=== PATIENT | female | born 1955 | race Hispanic/Latino ===

== ENCOUNTER 2018-11-06 07:31 | Emergency (ER) | payer BC, OTHER ==
[~2018-11-06 07:31] MED LIST: SIME80TA12 PO
[2018-11-06 08:56] LABS: BASOPHILS % (AUTO) 1.1 % (0.0-5.0); HEMATOCRIT 44.5 % (36-48); LYMPHOCYTES % (AUTO) 29.1 % (21.0-51.0); MEAN CORPUSCULAR HEMOGLOBIN 30.6 pg (27.0-33.0); MEAN CORPUSCULAR HGB CONC 33.9 g/dL (32.0-36.0); MEAN CORPUSCULAR VOLUME 90.4 fL (79-99); MONOCYTES % (AUTO) 8.8 % (3.0-13.0); NUCLEATED RED BLOOD CELLS 0.1 % (0.0-0.19); PLATELET COUNT (AUTO) 194 K/uL (130-400); RED BLOOD CELL COUNT(AUTO) 4.92 MIL/uL (4.00-5.50); RED CELL DISTRIBUTION WIDTH 13.8 % (11.0-15.5)
[2018-11-06] MEDS ORDERED: METHYLPREDNISOLONE SOD SUCC 125MG/2ML VIAL ONE (09:05)
[2018-11-06] MEDS ORDERED: LEVOFLOXACIN 500 MG/D5W 100 ML 100 ML ONE (09:06)
[2018-11-06 09:07] LABS: CREATININE 0.7 mg/dL (0.5-1.5); POTASSIUM 4.3 mmol/L (3.5-5.1)
[2018-11-06] MEDS ORDERED: SODIUM CHLORIDE 0.9% 1000ML 1,000 ML IV ONE (09:07)
[2018-11-06] MEDS ORDERED: IPRATROPIUM/ALBUTEROL SULFATE 3 ML SOLUTION IH ONE (09:23)
[2018-11-06 09:24] LABS: B-TYPE NATRIURETIC PEPTIDE 18 pg/mL (0-100)
== END 2018-11-06 11:06 | disposition home or self-care (01) ==
LOC: EDH 07:31
DX: J20.9 Acute bronchitis, unspecified (principal)
CPT/HCPCS: 36415; 71045; 80048; 83880; 84484; 85025; 87804 ×2; 93005; 94640; 96365; 96375; 99285; J1956; J2930; J7030

== ENCOUNTER 2018-12-29 20:59 | Emergency (ER) | payer OTHER ==
[2018-12-29] MEDS ORDERED: LORAZEPAM 1 MG TABLET ONE (21:13)
[2018-12-29 21:28] LABS: EOSINOPHILS % (AUTO) 1.6 % (0.0-8.0); HEMATOCRIT 44.3 % (36-48); LYMPHOCYTES % (AUTO) 38.7 % (21.0-51.0); MEAN CORPUSCULAR HEMOGLOBIN 31.4 pg (27.0-33.0); MEAN CORPUSCULAR HGB CONC 34.6 g/dL (32.0-36.0); MEAN CORPUSCULAR VOLUME 90.7 fL (79-99); MONOCYTES % (AUTO) 9.1 % (3.0-13.0); NEUTROPHILS % (AUTO) 49.6 % (40.0-77.0); PLATELET COUNT (AUTO) 206 K/uL (130-400); RED BLOOD CELL COUNT(AUTO) 4.89 MIL/uL (4.00-5.50); WHITE BLOOD COUNT (AUTO) 7.8 K/uL (4.8-10.8)
[2018-12-29 21:40] LABS: CREATININE 0.8 mg/dL (0.5-1.5); POTASSIUM 3.5 mmol/L (3.5-5.1)
[2018-12-29 21:43] LABS: INR 0.95 (0.85-1.15)
[2018-12-29 21:44] LABS: ALBUMIN 3.6 g/dL (3.5-5.0); BILIRUBIN,TOTAL 0.7 mg/dL (0.2-1.0); TOTAL PROTEIN, SERUM 7.4 g/dL (6.0-8.3)
== END 2018-12-29 22:18 | disposition home or self-care (01) ==
LOC: EDH 20:59
DX: R04.0 Epistaxis (principal); I10 Essential (primary) hypertension
CPT/HCPCS: 36415; 80053; 85025; 85610; 85730

== ENCOUNTER → 2020-09-09 | Outpatient (CLI) | payer OTHER ==
[~2020-09-09] MED LIST changes: +BACL10TA PO; +GABA300C PO; +LISI20TA24 PO; +LORA10TA7 PO; +MONT10TA32 PO; +PRED20TA3 PO
== END | disposition home or self-care (01) ==
LOC: OIH 10:27
PROVIDERS: ATTEND Internal Medicine
DX: M46.1 Sacroiliitis, not elsewhere classified (principal)
CPT/HCPCS: 72100; 72202

== ENCOUNTER 2021-09-18 17:45 | Emergency (ER) | payer OTHER ==
[~2021-09-18] VITALS: Ht 149.9 cm; Wt 73.5 kg
[~2021-09-18 17:45] MED LIST changes: +MONT-39 PO; -MONT10TA32 PO
[2021-09-18] MEDS ORDERED: ASPIRIN 81MG CHEW TAB PO ONE (18:00)
[2021-09-18] MEDS ORDERED: ASPIRIN 81MG CHEW TAB ONE (19:02)
[2021-09-18 19:20] LABS: CREATININE 0.7 mg/dL (0.5-1.5); POTASSIUM 3.4 mmol/L (3.5-5.1)
[2021-09-18 19:21] LABS: BASOPHILS % (AUTO) 0.7 % (0.0-5.0); HEMATOCRIT 42.9 % (36-48); LYMPHOCYTES % (AUTO) 44.8 % (21.0-51.0); MEAN CORPUSCULAR HEMOGLOBIN 28.9 pg (27.0-33.0); MEAN CORPUSCULAR HGB CONC 33.1 g/dL (32.0-36.0); MEAN CORPUSCULAR VOLUME 87.4 fL (79-99); MONOCYTES % (AUTO) 9.6 % (3.0-13.0); NEUTROPHILS % (AUTO) 42.7 % (40.0-77.0); PLATELET COUNT (AUTO) 229 K/uL (130-400); RED BLOOD CELL COUNT(AUTO) 4.91 MIL/uL (4.00-5.50)
[2021-09-18 19:30] LABS: ALBUMIN 3.5 g/dL (3.5-5.0); BILIRUBIN,TOTAL 0.5 mg/dL (0.2-1.0); TOTAL PROTEIN, SERUM 6.7 g/dL (6.0-8.3)
[2021-09-18] MEDS ORDERED: KETOROLAC 15MG/ML VIAL (15MG/ML) IV ONE (19:30)
[2021-09-18 21:16] VITALS: BP 123/72
[2021-09-18] MEDS ORDERED: DICL50TA9 PO (21:30)
== END 2021-09-18 21:45 | disposition home or self-care (01) ==
LOC: EDH 17:45
DX: R07.89 Other chest pain (principal); I10 Essential (primary) hypertension; M32.9 Systemic lupus erythematosus, unspecified; Z79.899 Other long term (current) drug therapy
CPT/HCPCS: 36415; 71045; 80053; 84484 ×2; 85025; 93005; 96374; 99285; J1885

== ENCOUNTER 2024-03-18 17:30 | Emergency (ER) | payer OTHER ==
[~2024-03-18] VITALS: Ht 160 cm; Wt 76.7 kg
[~2024-03-18 17:30] MED LIST changes: +DICL50TA9 PO
--- NOTE | 2024-03-18 17:44 | ERN ---
General Chief Complaint: Mechanical Fall Stated Complaint: PAIN TO HEAD, LT WRIST, TAILBONE Time Seen by MD: 17:32 History of Present Illness Initial Comments 68-year-old female presents to the ED for evaluation of mechanical fall onset [employer]. Patient reports head injury, left wrist injury, tailbone pain, left leg pain, but denies any LOC, vomiting or any other associated symptoms at this time. Patient reports she fell backwards while on top of the sofa. No blood thinners. Allergies: Coded Allergies: No Known Drug Allergies (Unverified Allergy, Unknown, 07/30/15) Home Meds Active Scripts Diclofenac Sodium (Diclofenac Sodium) 50 Mg Tablet.dr, 50 MG PO TIDP PRN for CHEST PAIN, #20 TAB 0 Refills Prov:TOPHER FUNK MD 09/18/21 Reported Medications Loratadine (Loratadine) 10 Mg Tablet, 10 MG PO DAILY, TAB 02/18/20 Prednisone (Prednisone) 20 Mg Tablet, 20 MG PO DAILY, TAB 02/18/20 Montelukast Sodium (Montelukast Sodium) 10 Mg Tablet, 10 MG PO DAILY, TAB 02/18/20 Baclofen (Baclofen) 10 Mg Tablet, 10 MG PO DAILY, TAB 02/18/20 Lisinopril (Lisinopril) 20 Mg Tablet, 20 MG PO DAILY, TAB 02/18/20 Gabapentin (Neurontin) 300 Mg Capsule, 300 MG PO TID, CAP 02/18/20 Simethicone (Simethicone) 80 Mg Tab.chew, 80 MG PO TIDAC for GI GAS, #60 TAB.CHEW 07/30/15 Past Medical History Past Medical History: Arthritis, Diverticulitis, Hypertension, Other Medical History Other: LUPUS Past Surgical History: None Social History Social History: Negative ROS Dictation Constitutional: Positive for fall Negative for fever,chills, and weight loss Eyes: Negative for injury, pain,redness, and discharge ENT: Negative for injury,pain or swelling Cardiovascular: Negative for chest pain, palpitations, and edema Respiratory: Negative for shortness of breath, cough, and wheezing, Abdomen/GI: Negative for abdominal pain, nausea, vomiting, diarrhea, and constipation Back: Negative for injury and pain : Negative for injury, bleeding and discharge MS/Extremity: Positive for left wrist pain, tailbone pain, left leg pain Skin: Negative for rash, and discoloration Neuro: Positive for head injury, negative for LOC,, weakness, numbness, tingling, and seizure Psych: Negative for suicide ideation, homicidal ideation, and hallucinations Physical Exam Physical Exam Dictation General: awake, alert, NAD Head/Face: Normocephalic, atraumatic Eyes: PERRL, EOMI, vision at baseline ENT: oral cavity clear, TMs clear, no signs of infection Neck: Trachea midline, supple, no nuchal rigidity Cardiovascular: RRR, normal S1/S2, No MRGs, no JVD Respiratory: CTAB, no respiratory distress, No rales or wheezes Abdomen: Soft, non-tender, non-distended, normal bowel sounds, no guarding or rebound. Skin: Warm, dry, normal turgor, no rash MS/Extremity: Pulses equal, no cyanosis, neurovascular intact, FROM, left wrist tenderness Neuro: COAx4, GCS 15, strength 5/5, CN 2-12 intact, normal cerebellar exam, normal gait, Psych: Normal behavior, mood, and affect normal MDM MDM: Differential diagnosis: Fall, wrist pain, contusion, head injury 1899- Patient care is being transferred to Dr. Cabrera Previous outside records reviewed: Old ER visits. Need for hospitalization: Patient does not meet criteria for hospitalization. Need for emergency major/minor surgery: No Patient's prior external medical records from other ER visits were reviewed by me as indicated. Prior testing and results from previous visits were reviewed. Prior tests were taken into account with medical decision making and resource utilization, independent historian/historians were used to obtain complete medical history. I independently interpreted the test that were performed, results were reviewed by me and considered findings on radiology if ordered. Medical management and examination interpretation discussions were had by me with other qualified healthcare professionals as indicated for the patient's care. ED Course Orders Procedure Category Date Status Time Ct Head/Brain W/O CT 03/18/24 Resulted Contrast 18:17 Wrist Comp 3+Vws Lt RAD 03/18/24 Resulted 18:17 Wrist Comp 3+Vws Rt RAD 03/18/24 Resulted 18:17 Lumbar Spine 2-3vws RAD 03/18/24 Resulted 18:17 Cerv Spine 2-3vws RAD 03/18/24 Resulted 18:18 Chest 1vw RAD 03/18/24 Resulted 18:18 Ketorolac PHA 03/18/24 Complete Tromethamine 15mg/Ml 20:00 Current Medications Medications (Trade) Dose Ordered Sig/[place] Route PRN Reason Start Time Stop Time Status Last Admin Dose Admin Ketorolac Tromethamine (toRADol) 15 mg ONCE ONCE IM 03/18/24 20:00 03/18/24 20:01 DC 03/18/24 19:59 Vital Signs Date Time Temp Pulse Resp B/P (MAP) Pulse Ox O2 Delivery O2 Flow Rate FiO2 03/18/24 19:51 85 18 180/82 98 Room Air* 0 21 03/18/24 17:32 98.1 96 16 179/82 97 Room Air 0 7.00 P.m. patient was signed out to me by a.m. physician. This is a 68-year-old female who came in for evaluation of fall and sustained injury no abrasions or lacerations. Extensive x-rays were requested which are pending at this time 8:[address] scan of the head negative for any acute intracranial bleed, depressed skull fractures. Extensive x-rays of lumbar spine C-spine bilateral wrist x-rays are all negative for fracture or dislocation there was some soft tissue swelling in the left hand x-ray We will place the left wrist in a splint. [id number] nonsteroidals upon DC DX & DISP Disposition: Discharge Departure Impression: Primary Impression: Fall Additional Impressions: Contusion of wrist, left, Closed head injury Condition: Stable Additional Instructions: Patient and the caregiver have been informed of all the diagnostic tests and the imaging conducted during the today's visit to the emergency room and has verbalized understanding of the results I have personally reviewed and interpreted all diagnostic exams performed here in the ER today as well as the vital signs documented by the nursing staff. The patient is now being discharged to home and should follow up with the primary care physician or the specialist as directed by the ER staff. Follow-up with primary care provider in 1 to 2 days. Take medications as directed here in the emergency room. Okay to continue home medications unless otherwise discussed during your visit in the emergency room today. Return to your nearest emergency room if symptoms worsen or if there is no improvement. Call 911 if you need immediate assistance. Take Tylenol or Motrin [id number] as needed and if no contraindications are present. Increase oral hydration. A wound culture or urine culture was ordered here in the emergency room department please follow-up with primary care provider and advise them to get repeat ports from our facility. If you had any Jewel wrap/splints that were applied here, please do not remove them until you see your primary care or specialty. Referrals: VINEET LEE MD (PCP) LUKASZ CARMONA MD Mar 18, 2024 17:44 RAMA CABRERA MD Mar 18, 2024 20:12
--- NOTE | 2024-03-18 18:42 | NUR ---
ASSUMED CARE AT THIS TIME.
--- NOTE | 2024-03-18 19:29 | NUR ---
PATIENT BACK FROM CT SCAN.
--- NOTE | 2024-03-18 19:38 | HMCIMG ---
CT HEAD/BRAIN W/O CONTRAST HISTORY: Status post fall COMPARISON: None TECHNIQUE: Multiple sequential axial images of the head were obtained from the base of the skull through vertex. Patient was not given contrast through intravenous route. FINDINGS: The ventricles and extraventricular CSF spaces are dilated consistent with cerebral atrophy. Nonspecific white matter changes seen. There is no midline shift, mass effect or herniation. No acute intracranial bleed is seen. Visualized portion of the paranasal sinuses are grossly within normal limits. IMPRESSION: 1. No acute intracranial bleed is seen. 2. Atrophy with white matter changes. CT was performed with one or more following dose reduction techniques: automated exposure control, adjustment of the mA and kv according to patient's size, or use of a iterative reconstruction technique.
--- NOTE | 2024-03-18 19:55 | HMCIMG ---
CERV SPINE 2-3VWS HISTORY: Status post fall COMPARISON: None FINDINGS: 2 images of cervical spine were obtained. C5, C6 and C7 vertebral bodies are not seen limiting evaluation. There is straightening of normal lordotic curvature which may be related to muscle spasm or positioning. No loss of vertebral height is seen. No fracture or dislocation is seen. Degenerative changes are seen. IMPRESSION: 1. No fracture is seen.
--- NOTE | 2024-03-18 19:56 | HMCIMG ---
CHEST 1VW HISTORY: Status post fall COMPARISON: None FINDINGS: A frontal projection of the chest was obtained. No acute pulmonary infiltrates is seen. The heart is borderline enlarged. Degenerative changes are seen. Prominent interstitial markings are seen. No evidence of aortic calcification is seen. IMPRESSION: 1. No acute pulmonary infiltrate is seen.
--- NOTE | 2024-03-18 19:58 | HMCIMG ---
LUMBAR SPINE 2-3VWS HISTORY: Status post fall COMPARISON: None FINDINGS: 3 images of lumbar spine were obtained. Disc space narrowing is seen at the L5-S1 level. Anterior osteophytes are seen. There are degenerative changes with spondylosis. There is straightening of normal lordotic curvature which may be related to muscle spasm or positioning. No loss of vertebral height is seen. No fracture or dislocation is seen. Degenerative changes are seen. IMPRESSION: 1. No fracture is seen. DJD with lumbar spine spondylosis.
--- NOTE | 2024-03-18 19:58 | HMCIMG ---
WRIST COMP 3+VWS LT HISTORY: Status post fall COMPARISON: None TECHNIQUE: 3 images of left wrist were obtained. FINDINGS: There is no acute displaced fracture or dislocation. There is soft tissue swelling. Degenerative changes are seen. IMPRESSION: 1. Findings as described above.
--- NOTE | 2024-03-18 19:58 | HMCIMG ---
WRIST COMP 3+VWS RT HISTORY: Status post fall COMPARISON: None TECHNIQUE: 3 images of right wrist were obtained. FINDINGS: There is no acute displaced fracture or dislocation. Degenerative changes are seen. IMPRESSION: 1. Findings as described above.
[2024-03-18] MEDS: ketOROlac 15MG/ML VIAL (15MG/ML) IM ONE (19:59)
[2024-03-18 20:36] VITALS: BP 170/88; PULSE 80; RESP 18; TEMP 98.4; O2SAT 98
== END 2024-03-18 20:37 | disposition home or self-care (01) ==
LOC: EDH 17:30
DX: S60.212A Contusion of left wrist, initial encounter (principal); S09.90XA Unspecified injury of head, initial encounter; I10 Essential (primary) hypertension; Z79.52 Long term (current) use of systemic steroids; Z79.899 Other long term (current) drug therapy; W18.39XA Other fall on same level, initial encounter; Y93.89 Activity, other specified; Y92.89 Other specified places as the place of occurrence of the external cause; Y99.8 Other external cause status
CPT/HCPCS: 99285; 70450; 71045; 72040; 72100; 73110; 29125; 96372; J1885

== ENCOUNTER → 2024-06-11 | Outpatient (CLI) | payer OTHER ==
--- NOTE | 2024-06-11 22:36 | HMCSR ---
APPROVED REPORT EXAM: Two-dimensional and M-mode echocardiogram with Doppler and color Doppler. INDICATION ICD: R00.2 Palpitations 2D Dimensions RVDd3.7 cmLVEF(%)40.1 (>50%)LVED Vol(simp.)64.9 mL IVSd0.9 (0.7-1.1cm)FS(%)20 %LVES Vol(simp.)26.7 mL LVDd5.4 (3.8-5.6cm)LA (2D)2.9 (1.6-4.0cm)LVEF(%, simp.)59 % PWd0.9 (0.7-1.1cm)Ao Root(2D)3.2 (2.0-3.7cm) LVDs4.3 (2.5-4.0cm)LVOT diam2.1 (1.8-2.4cm) IVC diam1.7 cm M-Mode Dimensions EPSS1.3 cm Aortic Valve AoV Vmax1.1 m/[place] GR4.7 mmHgLVOT Vmax0.8 m/s AoV VTI0.3 mAo Mean GR2.6 mmHgLVOT VTI0.21 m KELLE (VMAX)2.6 cm2Al P1/2T793 msAVA (VTI) 2.6 cm2 Mitral Valve MV E Vmax51.2 cm/sDECEL Blvt566 ms MV A Vmax89.5 cm/sP 1/2 T57 ms E/A ratio0.6MVA (PHT)3.9 cm2 TDI E/E' Medial7.3E/E' Lateral7.3 Medial E' Peak V7.00 cm/sLateral E' Peak V7.00 cm/s Tricuspid Valve RAP (EST) 3 mmHgRVSP3.0 mmHg Left Ventricle The left ventricle is normal size. There is normal LV segmental wall motion. Mild concentric LVH. LVE F is 55-60%. The left ventricular diastolic function is normal. Right Ventricle The right ventricle is normal size. The right ventricular systolic function is normal. Atria The left atrium size is normal. The right atrium size is normal. Aortic Valve The aortic valve is normal in structure. Trace aortic regurgitation is present. There is no aortic va lvular stenosis. Mitral Valve The mitral valve is normal in structure. There is trace of mitral valve regurgitation noted. There is no mitral valve stenosis. Tricuspid Valve The tricuspid valve is normal in structure. There is no tricuspid valve regurgitation noted. Pulmonic Valve The pulmonary valve is normal in structure. There is no pulmonic valvular regurgitation. Great Vessels The aortic root is normal in size. The IVC is normal in size and collapses >50% with inspiration. Pericardium There is no pericardial effusion. Other Information Quality : Adequate Conclusion The left atrium size is normal. Mild concentric LVH. There is normal LV segmental wall motion. LVEF is 55-60%. The left ventricular diastolic function is normal. The aortic valve is normal in structure. There is trace of mitral valve regurgitation noted. There is no pericardial effusion.
== END | disposition home or self-care (01) ==
LOC: RAH 09:07
PROVIDERS: ATTEND Internal Medicine
DX: I51.7 Cardiomegaly (principal); R00.2 Palpitations
CPT/HCPCS: 93306